=== PATIENT | male | born 1970 | race Caucasian/White ===

== ENCOUNTER → 2017-05-10 | Outpatient (CLI) | payer BC ==
--- NOTE | 2017-05-10 20:43 | CT ---
EXAMINATION TYPE: CT abdomen pelvis w con DATE OF EXAM: 05/10/2017 COMPARISON: NONE HISTORY: Left lower quadrant pain on and off x couple years. CT DLP: 1360.90 mGycm Automated exposure control for dose reduction was used. TECHNIQUE: Helical acquisition of images was performed from the lung bases through the pelvis. CONTRAST: Performed with Oral Contrast and with IV Contrast, patient injected with 100 mL of Omnipaque 300. FINDINGS: Lung bases are clear. There is no pleural effusion. There is mild scarring or subsegmental atelectasi s at the right posterior lung base. Liver shows no focal defect. Gallbladder is contracted. Spleen and pancreas appear normal. There is no adrenal mass. Kidneys show satisfactory contrast opacification. There is no hydronephrosi s. There is no retroperitoneal adenopathy. There is no ascites. There are tiny calcifications in the right kidney. Appendix appears normal. I see no intestinal wall thickening. There are no dilated loops. There is pl ate with screws fixing the right acetabulum. There are small calcifications in the prostate gland. Bl adder is almost empty. I see no bony destructive process. There is narrowing at L5-S1 disc space with spurring. IMPRESSION: MILD ATHEROMATOUS CHANGE IN THE AORTA. 2 AND 1 MM NONOBSTRUCTING CALCIFICATION IN THE RIGHT KIDNEY. NORMAL APPENDIX.
== END | disposition home or self-care (01) ==
LOC: RADCTMAIN 17:48
PROVIDERS: ATTEND Internal Medicine
DX: I70.0 Atherosclerosis of aorta (principal); N28.89 Other specified disorders of kidney and ureter; R10.32 Left lower quadrant pain
CPT/HCPCS: 74177; Q9967

== ENCOUNTER → 2017-06-16 | Outpatient (CLI) | payer BC ==
--- NOTE | 2017-06-16 17:20 | XR ---
EXAMINATION TYPE: XR finger RT DATE OF EXAM: 06/16/2017 COMPARISON: NONE HISTORY: Finger deformity TECHNIQUE: 2 views FINDINGS: There is some spurring at the DIP joint of the ring finger. I see no fracture nor dislocati on. IMPRESSION: Mild spurring. No fracture seen.
== END | disposition home or self-care (01) ==
LOC: RADXRYALE 16:51
PROVIDERS: ATTEND Family Medicine
DX: M77.8 Other enthesopathies, not elsewhere classified (principal)

== ENCOUNTER 2018-07-13 10:12 | Day surgery (SDC) | payer BC ==
[2018-07-11 17:42] VITALS: BMI 31.1
[~2018-07-13 10:12] MED LIST: LACTATED RINGERS 1,000 ML IV SCH; LIDOCAINE 1% 20 ML VIAL (10MG/ML) FOR IV START INTRADERMA PRN
[2018-07-13 10:56] VITALS: RESP 16; TEMP 97.7
[2018-07-13] MEDS ORDERED: LIDOCAINE 1% INJ 10MG/ML (20 ML MDV) ONE (11:54)
[2018-07-13] MEDS ORDERED: MIDAZOLAM 2 MG/2 ML VIAL ONE (11:54)
[2018-07-13] MEDS ORDERED: PROPOFOL 10 MG/ML 20 ML VIAL IV ONE (11:54)
[2018-07-13] MEDS ORDERED: GLYCOPYRROLATE 0.2 MG/ML 2 ML VIAL ONE (11:54)
--- NOTE | 2018-07-13 12:05 | P.PCN ---
Date of Procedure: 07/13/18 Procedure(s) Performed: BRIEF HISTORY: Patient is a heart 7-year-old, pleasant, white male, scheduled for an upper endoscopy as a part of evaluation of intermittent heartburn and globus sensation this area for the last several years duration.. PROCEDURE PERFORMED: Esophagogastroduodenoscopy with biopsy. PREOPERATIVE DIAGNOSIS: GERD/globus pharyngeus. IV sedation per anesthesia. PROCEDURE: After informed consent was obtained, the patient was brought into the endoscopy unit. IV sedation was administered by Anesthesia under continuous monitoring. Initially the Olympus GIF-140 video endoscope was inserted into the mouth. Esophagus intubated without any difficulty. It was gradually advanced into the stomach and duodenum and carefully examined. The bulb and the second part of the duodenum appeared normal. The scope at this time was withdrawn to the stomach, adequately insufflated with air, and upon careful examination, mucosa of the antrum, and mild gastritis and biopsies were done from this area. The body, cardia and the fundus appeared normal. The scope was then withdrawn into the esophagus. The GE junction was located at 43 cm from the incisors. There were no erosions or ulcerations seen. There was a short segment of Oleray's esophagus with a tongue of Oleary's appearing mucosa extending 5 mm proximal to the GE junction and this was biopsied. The rest of the esophagus appeared normal and the patient tolerated the procedure well. IMPRESSION: 1. Antral gastritis. 2. 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 RECOMMENDATIONS: The findings of this examination were discussed with the patient as his family. He was advised to follow with the biopsy results. He can continue with Zantac 150 milligrams twice daily and follow antireflux measures. If the biopsy shows evidence of Oleary's esophagus, he can have a repeat upper endoscopy in 2 years.
[2018-07-13 12:25] VITALS: BP 139/83; PULSE 74
== END 2018-07-13 12:50 | disposition home or self-care (01) ==
LOC: ORWHC2ENDO 10:12
PROVIDERS: ATTEND Internal Medicine Gastroenterology
DX: K29.50 Unspecified chronic gastritis without bleeding (principal); K22.70 Barrett's esophagus without dysplasia; K21.9 Gastro-esophageal reflux disease without esophagitis; Z79.891 Long term (current) use of opiate analgesic; Z79.899 Other long term (current) drug therapy; Z79.1 Long term (current) use of non-steroidal anti-inflammatories (NSAID); Z79.82 Long term (current) use of aspirin; Z88.0 Allergy status to penicillin; Z87.891 Personal history of nicotine dependence
CPT/HCPCS: 88305; 43239; J2250; J2001; J2704

== ENCOUNTER → 2018-12-06 | Outpatient (CLI) | payer BC ==
--- NOTE | 2018-12-07 09:49 | XR ---
EXAMINATION TYPE: XR elbow complete LT DATE OF EXAM: 12/06/2018 CLINICAL HISTORY: pain TECHNIQUE: Frontal, lateral and oblique images of the left elbow are obtained. COMPARISON: None. FINDINGS: There is no acute fracture/dislocation evident of the elbow. No abnormal fat pad signs ar e seen. The overlying soft tissue appears unremarkable. IMPRESSION: There is no acute fracture or dislocation of the elbow. ICD 10 NO FRACTURE, INITIAL EVALUATION
== END | disposition home or self-care (01) ==
LOC: RADXRYALE 16:41
PROVIDERS: ATTEND Family Medicine
DX: M25.522 Pain in left elbow (principal)

== ENCOUNTER → 2020-10-23 | Outpatient (CLI) | payer BC ==
--- NOTE | 2020-10-23 17:55 | XR ---
EXAMINATION TYPE: XR abdomen 2V DATE OF EXAM: 10/23/2020 COMPARISON: 12/09/2012 INDICATION: Left lower quadrant pain TECHNIQUE: Abdomen is examined in the supine and upright views. FINDINGS: There is a normal bowel gas pattern. No free air is present. No suspicious differential air-fluid lev els are present. Old postsurgical changes are at the right pelvis. Psoas margins are normal. No organomegaly is present. IMPRESSION: 1. Unremarkable Abdomen
== END | disposition home or self-care (01) ==
LOC: RADXRYALE 15:42
PROVIDERS: ATTEND Physician Assistant Medical
DX: R10.814 Left lower quadrant abdominal tenderness (principal)
CPT/HCPCS: 74019

== ENCOUNTER → 2020-11-21 | Outpatient (CLI) | payer BC ==
--- NOTE | 2020-11-22 08:23 | CT ---
EXAMINATION TYPE: CT abdomen pelvis w con DATE OF EXAM: 11/21/2020 COMPARISON: 05/10/2017 HISTORY: 50-year-old male Left lower quadrant abdominal pain and tenderness. TECHNIQUE: Contiguous axial scanning of the abdomen and pelvis following administration of 100 ml Iso josé miguel 300 IV contrast. Delayed images through the kidneys and coronal/sagittal reconstructions perform ed. CT DLP: 1345.5 mGycm Automated exposure control for dose reduction was used. FINDINGS: Heart normal size without pericardial effusion. Lung bases clear without pleural effusion. Liver mild ly enlarged at 18.4 cm there are no focal lesions seen. No biliary ductal dilatation. Portal venous s ystem appears patent. Gallbladder, adrenal glands, left kidney, and pancreas appear within normal limits. Punctate nonobstr uctive 2 mm right renal calculus, coronal image 61. Spleen mildly enlarged at 15.1 cm measured on coronal series. No dilated small bowel, free fluid, or free air. No mesenteric or retroperitoneal lymphadenopathy. Normal appendix. Oral contrast progressed to the mid transverse colon. There is mild scattered stool. No pericolonic inflammatory change. Bladder partially distended. Questionable mild mural based thickening along the left posterior bladde r base, axial image 81 and coronal image 58. Unclear if this relates to some streak artifact from the patient's previous acetabular plate and screw fixation on the right. Prostate gland mildly enlarged at 4.9 cm wide with central calcifications. No abnormal fluid collection in the pelvis or pelvic lymp hadenopathy. Bones: Moderate degenerative change of both hips. Some sclerosis within the left iliac fossa remains unchanged from 2017, suggesting probable benign bone island. Degenerative change right SI joint. Adva nced degenerative disc disease L5-S1 and facet arthropathy mid to lower lumbar spine. IMPRESSION: 1. MILD HEPATOSPLENOMEGALY (LIVER 18.4 CM AND SPLEEN 15.1 CM). 2. PUNCTATE 2 MM NONOBSTRUCTIVE RIGHT RENAL CALCULUS. 3. QUESTIONABLE MILD MURAL BASED SOFT TISSUE THICKENING ALONG THE LEFT POSTERIOR BLADDER BASE. UNABLE TO DETERMINE IF THIS CORRESPONDS TO STREAK ARTIFACT FROM THE PATIENT'S RIGHT ACETABULAR FIXATION JOSELYN DWARE OR AN UNDERLYING UROTHELIAL LESION. CORRELATE WITH URINALYSIS AND URINE CYTOLOGY TO ASSESS THE NEED FOR DIRECT VISUALIZATION. 4. MILD PROSTATOMEGALY OF 4.9 CM WIDE.
== END ==
LOC: RADCTMAIN 14:38
PROVIDERS: ATTEND Family Medicine
DX: R16.2 Hepatomegaly with splenomegaly, not elsewhere classified (principal); N20.0 Calculus of kidney; N40.0 Benign prostatic hyperplasia without lower urinary tract symptoms; R10.32 Left lower quadrant pain
CPT/HCPCS: 74177; Q9967

== ENCOUNTER → 2021-01-20 | Outpatient (CLI) | payer BC ==
--- NOTE | 2021-01-21 08:34 | XR ---
EXAMINATION TYPE: XR hand complete RT DATE OF EXAM: 01/20/2021 CLINICAL HISTORY: pain TECHNIQUE: Frontal, lateral and oblique images of the right hand are obtained. COMPARISON: None. FINDINGS: There is no acute fracture/dislocation evident. The joint spaces appear within normal limi ts. The overlying soft tissue appears unremarkable. IMPRESSION: There is no acute fracture or dislocation ICD 10 NO FRACTURE, INITIAL EVALUATION
== END | disposition home or self-care (01) ==
LOC: RADXRYALE 16:31
PROVIDERS: ATTEND Physician Assistant Medical
DX: M79.641 Pain in right hand (principal)

== ENCOUNTER → 2021-10-15 | Outpatient (CLI) | payer BC ==
--- NOTE | 2021-10-16 08:53 | XR ---
EXAMINATION TYPE: XR shoulder complete LT DATE OF EXAM: 10/15/2021 COMPARISON: NONE HISTORY: Pain TECHNIQUE: Shoulder examined in 3 projections FINDINGS: The humeral head articulates with the glenoid. The acromio-clavicular junction is normal. No acute fractures or dislocations are evident. A follow up study can be performed 7-10 days from acute trauma for continued pain. IMPRESSION: 1. No acute osseous abnormality left shoulder.
== END | disposition home or self-care (01) ==
LOC: RADXRYALE 16:19
PROVIDERS: ATTEND Physician Assistant
DX: M25.512 Pain in left shoulder (principal)

== ENCOUNTER → 2021-11-07 | Outpatient (CLI) | payer BC ==
--- NOTE | 2021-11-08 11:15 | CT ---
EXAMINATION TYPE: CT chest wo con DATE OF EXAM: 11/07/2021 COMPARISON: None HISTORY: Shortness of breath TECHNIQUE: CT scan of the chest performed without contrast CT DLP: 515 mGycm Automated exposure control for dose reduction was used. FINDINGS: No focal airspace opacity, pneumothorax or pleural effusion. Azygos fissure noted. Airways are patent , no bronchiectasis seen. Nodules: 3 mm nodule right upper lobe image 40 series 4. 5 to 6 mm right upper lobe nodule image 47 series 4. 5 6 mm nodule left upper lobe image 21 series 4. The heart is normal in size. No pericardial effusion seen. Left coronary artery atherosclerotic calci fications are noted. Intrathoracic aorta is nonaneurysmal in appearance. No mediastinal or hilar adenopathy. No axillary lymphadenopathy. No acute fracture or dislocation seen. Mild degenerative changes are seen in the thoracic spine. Dege nerative changes are noted at the left clavicular sternal junction. Additional sternocostal junction degenerative changes are noted which are not unexpected for the patient's age.The soft tissue are unr emarkable. The thyroid gland is not enlarged. Atherosclerotic calcifications are seen in the infrarenal abdomina l aorta. There is a 2 to 3 mm right renal calculus. The esophagus is nondistended. IMPRESSION: 1. NO ACUTE INTRATHORACIC PROCESS. 2. NONSPECIFIC LUNG NODULES DESCRIBED ABOVE MEASURING UP TO 6 MM, PLEASE REFER TO [facility] FOR WORKUP/FOLLOW-UP RECOMMENDATION-OTHERWISE REPEAT CHEST CT IN 12 MONTHS. 3. RIGHT RENAL CALCULUS MEASURING UP TO 3 MM.
== END | disposition home or self-care (01) ==
LOC: RADCTMAIN 15:33
PROVIDERS: ATTEND Family Medicine
DX: R91.8 Other nonspecific abnormal finding of lung field (principal); N20.0 Calculus of kidney
CPT/HCPCS: 71250

== ENCOUNTER → 2023-02-01 | Outpatient (CLI) | payer BC ==
--- NOTE | 2023-02-02 09:54 | CT ---
EXAMINATION TYPE: CT chest wo con DATE OF EXAM: 02/01/2023 COMPARISON: 11/07/2019 HISTORY: Follow up for Solitary Pulmonary Nodules. CT DLP: 483.7 mGycm. Automated Exposure Control for Dose Reduction was Utilized. TECHNIQUE: CT scan of the thorax is performed without IV contrast. FINDINGS: LUNGS: The lungs are grossly clear, there is no concerning consolidative pneumonia identified. Ther e is no pleural effusion or pneumothorax seen. The tracheobronchial tree is patent. Linear subsegmen bari areas of consolidation most scarring cysts. Additional subsegmental consolidation right lung base suggest atelectasis 1 mm nodule right upper lobe image 33 series 4. Stable. 5 mm right upper lobe nodule image 39 series 4. Stable. 3 mm nodule left upper lobe image 15 series 4. Stable. MEDIASTINUM: Lack of IV contrast is noted to limit evaluation for mediastinal and especially hilar ad enopathy. There are no definitive greater than 1 cm hilar or mediastinal lymph nodes. No cardiomega ly or pericardial effusion is seen. There is coronary artery calcification. Aorta normal caliber with mild sclerotic change OTHER: There multiple less than 5 mm renal calculus. Hypertrophic and degenerative changes spine. IMPRESSION: 1. Stable 5 mm less pulmonary nodules which have a benign appearance. 2. Nonobstructing bilateral renal calculi. 3. Coronary artery calcifications
== END | disposition home or self-care (01) ==
LOC: RADCTMAIN 18:13
PROVIDERS: ATTEND Family Medicine
DX: I25.10 Atherosclerotic heart disease of native coronary artery without angina pectoris (principal); R91.8 Other nonspecific abnormal finding of lung field; N20.0 Calculus of kidney
CPT/HCPCS: 71250

== ENCOUNTER 2023-02-19 14:14 | Emergency (ER) | payer BC ==
[2023-02-19 14:31] VITALS: BP 160/80; PULSE 87; RESP 20; TEMP 98.2
--- NOTE | 2023-02-19 14:54 | ED ---
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 Patient states that last night was bit by an unknown bug on his right forearm. Patient states upon waking today, bite has worsened stating that it is becoming red and swollen and spreading. No recent antibiotic use or recent hospitalizations. Denies history of IVDA. No other complaints - Related Data Home Medications Medication Instructions Recorded Confirmed Aspirin EC [Ecotrin] 325 mg PO DAILY PRN 05/31/18 07/13/18 Pseudoephedrine 12Hr [Sudafed 12Hr] 120 mg PO Q12H PRN 05/31/18 07/13/18 traMADol HCL [Ultram] 50 mg PO DAILY PRN 05/31/18 07/13/18 Ibuprofen [Motrin] 600 mg PO Q6HR PRN 07/11/18 07/13/18 Previous Rx's Medication Instructions Recorded Doxycycline [Vibramycin] 100 mg PO BID #14 capsule 02/19/23 Allergies Allergy/AdvReac Type Severity Reaction Status Date / Time Penicillins Allergy Anaphylaxis Verified 02/19/23 14:30 Review of Systems ROS Statement: Those systems with pertinent positive or pertinent negative responses have been documented in the HPI. ROS Other: All systems not noted in ROS Statement are negative. Past Medical History Past Medical History: No Reported History History of Any Multi-Drug Resistant Organisms: None Reported Past Surgical History: Appendectomy, Hernia Repair, Orthopedic Surgery Additional Past Surgical History / Comment(s): repair of rt Fx of Acetabulum Past Anesthesia/Blood Transfusion Reactions: No Reported Reaction Past Psychological History: No Psychological Hx Reported Smoking Status: Current some day smoker Past Alcohol Use History: Occasional Past Drug Use History: None Reported - Past Family History Mother Family Medical History: No Reported History General Exam Limitations: no limitations General appearance: alert, in no apparent distress Head exam: Present: atraumatic, normocephalic Neck exam: Present: normal inspection Respiratory exam: Present: normal lung sounds bilaterally Cardiovascular Exam: Present: regular rate, normal rhythm Right Upper Arm exam: Present: other (Approximately 8 x 5 cm area on the anterior forearm of warmth and erythema with minimal swelling. Nontender to palpation.) Neurological exam: Present: alert, oriented X3 Psychiatric exam: Present: normal affect, normal mood Skin exam: Present: warm, dry Course Vital Signs 02/19/23 14:28 Temperature 98.2 F Pulse Rate 87 Respiratory 20 Rate Blood Pressure 160/80 O2 Sat by Pulse 98 Oximetry Medical Decision Making - Medical Decision Making Was pt. sent in by a medical professional or institution ([facility] Bassett, TYPECASTING MACHINE OPERATOR, urgent care, hospital, or [facility]...) When possible be specific @ -[No] Did you speak to anyone other than the patient for history (EMS, parent, family, police, friend...)? What history was obtained from this source @ -[No] Did you review nursing and triage notes (agree or disagree)? Why? @ -[I reviewed and agree with nursing and triage notes] Were old charts reviewed (outside hosp., previous admission, EMS record, old EKG, old radiological studies, urgent care reports/EKG's, [facility] records)? Report findings @ -[No old charts were reviewed] Differential Diagnosis (chest pain, altered mental status, abdominal pain women, abdominal pain men, vaginal bleeding, weakness, fever, dyspnea, syncope, headache, dizziness, GI bleed, back pain, seizure, CVA, palpatations, mental health, musculoskeletal)? @ -Atopic dermatitis, erysipelas, poison andres, is not meant to be an all- inclusive list. EKG interpreted by me (3pts min.). @ -[As above] X-rays interpreted by me (1pt min.). @ -[None done] CT interpreted by me (1pt min.). @ -[None done] U/S interpreted by me (1pt. min.). @ -[None done] What testing was considered but not performed or refused? (CT, X-rays, U/S, labs)? Why? @ -[None] What meds were considered but not given or refused? Why? @ -[None] Did you discuss the management of the patient with other professionals (professionals i.e. [facility] Bassett, TYPECASTING MACHINE OPERATOR, lab, RT, psych nurse, psychotherapist social worker, kapok machine operator, teacher, signals officer, sample case porter)? Give summary @ -[No] Was smoking cessation discussed for >3mins.? @ -[No] Was critical care preformed (if so, how long)? @ -[No] Were there social determinants of health that impacted care today? How? (Homelessness, low income, unemployed, alcoholism, drug addiction, transportation, low edu. Level, literacy, decrease access to med. care, usp, rehab)? @ -[No] Was there de-escalation of care discussed even if they declined (Discuss DNR or withdrawal of care, Hospice)? DNR status @ -[No] What co-morbidities impacted this encounter? (DM, HTN, Smoking, COPD, CAD, Cancer, CVA, ARF, Chemo, Hep., AIDS, mental health diagnosis, sleep apnea, morbid obesity)? @ -[None] Was patient admitted / discharged? Hospital course, mention meds given and route, prescriptions, significant lab abnormalities, going to OR and other pertinent info. @ -Patient discharged and prescribed doxycycline 100 mg twice a day for 7 days for outpatient treatment. At this time vital signs stable and afebrile. Undiagnosed new problem with uncertain prognosis? @ -[No] Drug Therapy requiring intensive monitoring for toxicity (Heparin, Nitro, Insulin, Cardizem)? @ -[No] Were any procedures done? @ -[No] Diagnosis/symptom? @ -Cellulitis Acute, or Chronic, or Acute on Chronic? @ -Acute Uncomplicated (without systemic symptoms) or Complicated (systemic symptoms)? @ -[default] Side effects of treatment? @ -[No] Exacerbation, Progression, or Severe Exacerbation? @ -[No] Poses a threat to life or bodily function? How? (Chest pain, USA, CT, pneumonia, PE, COPD, DKA, ARF, appy, cholecystitis, CVA, Diverticulitis, Homicidal, Suicidal, threat to staff... and all critical care pts) @ -[No] Disposition Clinical Impression: Cellulitis Disposition: HOME SELF-CARE Condition: Good Additional Instructions: Please return to the Emergency Department if symptoms worsen or any other concerns. Prescriptions: Doxycycline [Vibramycin] 100 mg PO BID #14 capsule Is patient prescribed a controlled substance at d/c from ED?: No Referrals: Jignesh Barrientos DO [Primary Care Provider] - 1-2 days Time of Disposition: 14:50
== END 2023-02-19 16:11 | disposition home or self-care (01) ==
LOC: EC 14:14
DX: L03.113 Cellulitis of right upper limb (principal); F17.200 Nicotine dependence, unspecified, uncomplicated; Z88.0 Allergy status to penicillin; W57.XXXA Bitten or stung by nonvenomous insect and other nonvenomous arthropods, initial encounter
CPT/HCPCS: 99283

== ENCOUNTER 2024-03-10 21:58 | Emergency (ER) | payer BC ==
[2024-03-10 22:30] VITALS: TEMP 97.7
--- NOTE | 2024-03-10 22:36 | ED ---
Male Urogenital HPI - General Source: patient, RN notes reviewed Mode of arrival: ambulatory Limitations: no limitations <May Finch - Last Filed: 03/10/24 22:35> - General Source: RN notes reviewed, old records reviewed Mode of arrival: ambulatory Limitations: no limitations - History of Present Illness MD Complaint: other (Hematuria) -: days(s) (5) Radiation: none Severity: mild Severity scale (1-10): 2 Improves with: none Worsens with: none Reports: blood in urine <Nicko Santiago - Last Filed: 03/24/24 21:29> - General Chief complaint: Urogenital Stated complaint: Blood in Urine Time Seen by Provider: 03/10/24 22:35 - History of Present Illness Initial comments: Quick note: 53-year-old male presented to the ER with a chief complaint of hematuria. He reports he had a large amount of blood in his urine on 03-06-2024. He states on Wednesday he had a very small amount in his urine P states for the past week he did not have any episodes of hematuria. He states this evening he had another large episode of hematuria. He is not currently on any blood thinners. He does have a history of kidney stones. He is also endorsing left lower quadrant abdominal pain. Denies any fevers or chills. (May Finch) This is a 53-year-old male non-smoker coming in for evaluation regards to blood in the urine going on for about a week he did have a negative outpatient urine test and culture (Nicko Santiago) - Related Data Home Medications Medication Instructions Recorded Confirmed Aspirin EC [Ecotrin] 325 mg PO DAILY PRN 05/31/18 07/13/18 Pseudoephedrine 12Hr [Sudafed 12Hr] 120 mg PO Q12H PRN 05/31/18 07/13/18 traMADol HCL [Ultram] 50 mg PO DAILY PRN 05/31/18 07/13/18 Ibuprofen [Motrin] 600 mg PO Q6HR PRN 07/11/18 07/13/18 Previous Rx's Medication Instructions Recorded Doxycycline [Vibramycin] 100 mg PO BID #14 capsule 02/19/23 Allergies Allergy/AdvReac Type Severity Reaction Status Date / Time Penicillins Allergy Anaphylaxis Verified 03/10/24 22:30 Review of Systems ROS Other: All systems not noted in ROS Statement are negative. <Mya Finch - Last Filed: 03/10/24 22:35> ROS Other: All systems not noted in ROS Statement are negative. <MelindaNicko dobson Grzegorz - Last Filed: 03/24/24 21:29> ROS Statement: Those systems with pertinent positive or pertinent negative responses have been documented in the HPI. Past Medical History Past Medical History: No Reported History Additional Past Medical History / Comment(s): kidney stones History of Any Multi-Drug Resistant Organisms: None Reported Past Surgical History: Appendectomy, Hernia Repair, Orthopedic Surgery Additional Past Surgical History / Comment(s): repair of rt Fx of Acetabulum Past Anesthesia/Blood Transfusion Reactions: No Reported Reaction Past Psychological History: No Psychological Hx Reported Smoking Status: Current some day smoker Past Alcohol Use History: Occasional Past Drug Use History: None Reported - Past Family History Mother Family Medical History: No Reported History <May Finch - Last Filed: 03/10/24 22:35> General Exam Limitations: no limitations <May Finch - Last Filed: 03/10/24 22:35> General appearance: alert, in no apparent distress Head exam: Present: atraumatic, normocephalic, normal inspection Eye exam: Present: normal appearance, PERRL, EOMI. Absent: scleral icterus, conjunctival injection, periorbital swelling ENT exam: Present: normal exam, mucous membranes moist Neck exam: Present: normal inspection. Absent: tenderness, meningismus, lymphadenopathy Respiratory exam: Present: normal lung sounds bilaterally. Absent: respiratory distress, wheezes, rales, rhonchi, stridor Cardiovascular Exam: Present: regular rate, normal rhythm, normal heart sounds. Absent: systolic murmur, diastolic murmur, rubs, gallop, clicks GI/Abdominal exam: Present: soft, normal bowel sounds. Absent: distended, tenderness, guarding, rebound, rigid Extremities exam: Present: normal inspection, full ROM, normal capillary refill. Absent: tenderness, pedal edema, joint swelling, calf tenderness Back exam: Present: normal inspection Neurological exam: Present: alert, oriented X3, CN II-XII intact Psychiatric exam: Present: normal affect, normal mood Skin exam: Present: warm, dry, intact, normal color. Absent: rash <Nicko Santiago - Last Filed: 03/24/24 21:29> - General Exam Comments Initial Comments: Visual Physical Exam Vital signs reviewed General: Well-appearing, nontoxic, no acute distress. Head: Normocephalic, atraumatic Eyes: PERRLA, EOMI ENT: Airway patent Chest: Nonlabored breathing Skin: No visual rash, normal skin tone Neuro: Alert and oriented 3 Musculoskeletal: No gross abnormalities (May Finch) Course <Nicko Santiago - Last Filed: 03/24/24 21:29> Vital Signs 03/10/24 03/11/24 22:26 01:36 Temperature 97.7 F Pulse Rate 92 91 Respiratory 20 18 Rate Blood Pressure 165/87 156/83 O2 Sat by Pulse 96 Oximetry - Reevaluation(s) Reevaluation #1: 03/11/24 01:12 Medical records reviewed (Nicko Santiago) Reevaluation #2: 03/11/24 01:12 Patient is able to urinate here in the ER (Nicko Santiago) Reevaluation #3: Patient informed of results questions answered (Nicko Santiago) Reevaluation #4: Was pt. sent in by a medical professional or institution ([facility] Bassett, THERAPY AIDE, urgent care, hospital, or [facility]...) When possible be specific @ -no Did you speak to anyone other than the patient for history (EMS, parent, family, police, friend...)? What history was obtained from this source @ -no Did you review nursing and triage notes (agree or disagree)? Why? @ -agree Are old charts reviewed (outside hosp., previous admission, EMS record, old EKG, old radiological studies, urgent care reports/EKG's, [facility] records)? Report findings @ -yes Differential Diagnosis (chest pain, altered mental status, abdominal pain women, abdominal pain men, vaginal bleeding, weakness, fever, dyspnea, syncope, headache, dizziness, GI bleed, back pain, seizure, CVA, palpatations, mental health, musculoskeletal)? @ -prior EKG interpreted by me (3pts min.). @ -no X-rays interpreted by me (1pt min.). @ -no CT interpreted by me (1pt min.). @ -yes negative for acute disease U/S interpreted by me (1pt. min.). @ -no What testing was considered but not performed or refused? (CT, X-rays, U/S, labs)? Why? @ -none What meds were considered but not given or refused? Why? @ -none Did you discuss the management of the patient with other professionals (professionals i.e. , PA, THERAPY AIDE, lab, RT, psych nurse, social media community manager, rail signal mechanic, teacher, chief scientific officer, shoe caser)? Give summary @ -no Was smoking cessation discussed for >3mins.? @ -no Was critical care preformed (if so, how long)? @ -no Were there social determinants of health that impacted care today? How? (Homelessness, low income, unemployed, alcoholism, drug addiction, transportation, low edu. Level, literacy, decrease access to med. care, nursing home, rehab)? @ -none Was there de-escalation of care discussed even if they declined (Discuss DNR or withdrawal of care, Hospice)? DNR status @ -no What co-morbidities impacted this encounter? (DM, HTN, Smoking, COPD, CAD, Cancer, CVA, ARF, Chemo, Hep., AIDS, mental health diagnosis, sleep apnea, morbid obesity)? @ -none Was patient admitted / discharged? Hospital course, mention meds given and route, prescriptions, significant lab abnormalities, going to OR and other pertinent info. @ - 53 male to ER for evaluation of hematuria with no acute cause found. Ramesh mosher has negative CT scan and can be discharged home Discharge Undiagnosed new problem with uncertain prognosis? @ -no Drug Therapy requiring intensive monitoring for toxicity (Heparin, Nitro, Insul in, Cardizem)? @ -no Were any procedures done? @ -no Diagnosis/symptom? @ -Hematuria Acute, or Chronic, or Acute on Chronic? @ -Acute Uncomplicated (without systemic symptoms) or Complicated (systemic symptoms)? @ -Complicated Side effects of treatment? @ -no Exacerbation, Progression, or Severe Exacerbation? @ -exacerbation Poses a threat to life or bodily function? How? (Chest pain, USA, [place], pneumonia, PE, COPD, DKA, ARF, appy, cholecystitis, CVA, Diverticulitis, Homicidal, Suicidal, threat to staff... and all critical care pts) @ -no (Nicko Santiago) Reevaluation #5: Differential Abdominal Pain Men: Appendicitis, cholecystitis, diverticulosis, ischemic bowel, pancreatitis, hepatitis, UTI, gastroenteritis, AAA, incarcerated hernia, bowel obstruction, constipation, inflammatory bowel, hepatitis, peptic ulcer disease, splenic infarction, perforated viscus, testicular torsion, this is not meant to be an all-inclusive list (Nicko Santiago) Medical Decision Making <May Finch - Last Filed: 03/10/24 22:35> - Lab Data Result diagrams: 03/11/24 00:07 03/11/24 00:07 - Radiology Data Radiology results: report reviewed (CT abdomen pelvis negative for acute disease), image reviewed <Nicko Santiago - Last Filed: 03/24/24 21:29> - Medical Decision Making I performed the quick note portion of this chart. Electronically signed by May Finch PA-C (May Finch) 53 male to ER for evaluation of hematuria with no acute cause found. Patient has negative CT scan and can be discharged home (Nicko Santiago) - Lab Data Lab Results 03/10/24 03/11/24 03/11/24 Range/Units 22:32 00:07 00:07 WBC 7.6 (3.8-10.6) k/uL RBC 4.88 (4.30-5.90) m/uL Hgb 15.7 (13.0-17.5) gm/dL Hct 46.8 (39.0-53.0) % MCV 95.8 (80.0-100.0) fL MCH 32.2 (25.0-35.0) pg MCHC 33.6 (31.0-37.0) g/dL RDW 13.4 (11.5-15.5) % Plt Count 276 (150-450) k/uL MPV 7.4 Neutrophils % 57 % Lymphocytes % 28 % Monocytes % 8 % Eosinophils % 4 % Basophils % 1 % Neutrophils # 4.4 (1.3-7.7) k/uL Lymphocytes # 2.2 (1.0-4.8) k/uL Monocytes # 0.6 (0-1.0) k/uL Eosinophils # 0.3 (0-0.7) k/uL Basophils # 0.1 (0-0.2) k/uL PT 10.1 (10.0-12.5) sec INR 0.9 (<1.2) APTT 26.5 (22.0-30.0) sec Sodium (137-145) mmol/L Potassium (3.5-5.1) mmol/L Chloride (98-107) mmol/L Carbon Dioxide (22-30) mmol/L Anion Gap mmol/L BUN (9-20) mg/dL Creatinine (0.66-1.25) mg/dL Est GFR (CKD-EPI)AfAm (>60 ml/min/1.73 sqM) Est GFR (CKD-EPI)NonAf (>60 ml/min/1.73 sqM) Glucose (74-99) mg/dL Calcium (8.4-10.2) mg/dL Total Bilirubin (0.2-1.3) mg/dL AST (17-59) U/L ALT (4-49) U/L Alkaline Phosphatase (38-126) U/L Total Protein (6.3-8.2) g/dL Albumin (3.5-5.0) g/dL Amylase (30-110) U/L Lipase (23-300) U/L Urine Color Light Red Urine Appearance Cloudy (Clear) Urine pH 5.5 (5.0-8.0) Ur Specific [place] 1.025 (1.001-1.035) Urine Protein 1+ H (Negative) Urine Glucose (UA) Negative (Negative) Urine Ketones Negative (Negative) Urine Blood Large H (Negative) Urine Nitrite Negative (Negative) Urine Bilirubin Negative (Negative) Urine Urobilinogen <2.0 (<2.0) mg/dL Ur Leukocyte Esterase Trace H (Negative) Urine RBC >182 H (0-5) /hpf Urine WBC 16 H (0-5) /hpf Ur Squamous Epith Cells 1 (0-4) /hpf Urine Mucus Occasional H (None) /hpf 03/11/24 Range/Units 00:07 WBC (3.8-10.6) k/uL RBC (4.30-5.90) m/uL Hgb (13.0-17.5) gm/dL Hct (39.0-53.0) % MCV (80.0-100.0) fL MCH (25.0-35.0) pg MCHC (31.0-37.0) g/dL RDW (11.5-15.5) % Plt Count (150-450) k/uL MPV Neutrophils % % Lymphocytes % % Monocytes % % Eosinophils % % Basophils % % Neutrophils # (1.3-7.7) k/uL Lymphocytes # (1.0-4.8) k/uL Monocytes # (0-1.0) k/uL Eosinophils # (0-0.7) k/uL Basophils # (0-0.2) k/uL PT (10.0-12.5) sec INR (<1.2) APTT (22.0-30.0) sec Sodium 137 (137-145) mmol/L Potassium 4.0 (3.5-5.1) mmol/L Chloride 109 H (98-107) mmol/L Carbon Dioxide 19 L (22-30) mmol/L Anion Gap 9 mmol/L BUN 17 (9-20) mg/dL Creatinine 0.84 (0.66-1.25) mg/dL Est GFR (CKD-EPI)AfAm >90 (>60 ml/min/1.73 sqM) Est GFR (CKD-EPI)NonAf >90 (>60 ml/min/1.73 sqM) Glucose 106 H (74-99) mg/dL Calcium 8.7 (8.4-10.2) mg/dL Total Bilirubin 0.6 (0.2-1.3) mg/dL AST 25 (17-59) U/L ALT 24 (4-49) U/L Alkaline Phosphatase 50 (38-126) U/L Total Protein 7.0 (6.3-8.2) g/dL Albumin 4.4 (3.5-5.0) g/dL Amylase 66 (30-110) U/L Lipase 71 (23-300) U/L Urine Color Urine Appearance (Clear) Urine pH (5.0-8.0) Ur Specific [place] (1.001-1.035) Urine Protein (Negative) Urine Glucose (UA) (Negative) Urine Ketones (Negative) Urine Blood (Negative) Urine Nitrite (Negative) Urine Bilirubin (Negative) Urine Urobilinogen (<2.0) mg/dL Ur Leukocyte Esterase (Negative) Urine RBC (0-5) /hpf Urine WBC (0-5) /hpf Ur Squamous Epith Cells (0-4) /hpf Urine Mucus (None) /hpf Disposition <May Finch - Last Filed: 03/10/24 22:35> Is patient prescribed a controlled substance at d/c from ED?: No Time of Disposition: 01:30 <Nicko Santiago - Last Filed: 03/24/24 21:29> Clinical Impression: Hematuria Disposition: HOME SELF-CARE Condition: Good Instructions (If sedation given, give patient instructions): Hematuria (ED) Referrals: Jignesh Barrientos DO [Primary Care Provider] - 1-2 days Maury Fisher MD [STAFF PHYSICIAN] - 1-2 days
[2024-03-10 22:53] LABS: Appearance,Urine Cloudy (Clear); Bilirubin,Urine Negative (Negative); Blood,Urine Large (Negative); Color,Urine Light Red; Glucose,Urine (UA) Negative (Negative); Ketones,Urine Negative (Negative); Leukocyte Esterase,Urine Trace (Negative); Mucus,Urine Occasional /hpf; Nitrite,Urine Negative (Negative); PH, Urine 5.5 (5.0-8.0); Protein,Urine 1+ (Negative); RBC,Urine >182 /hpf (0-5); Specific Gravity,Urine 1.025 (1.001-1.035); Squamous Epithelial Cell,Urine 1 /hpf (0-4); Urobilinogen,Urine <2.0 mg/dL (<2.0); WBC,Urine 16 /hpf (0-5)
[2024-03-11] MEDS: SODIUM CHLORIDE 0.9% 1,000 ML IV STA (00:06)
[2024-03-11 00:16] LABS: Basophils # (A) 0.1 k/uL (0-0.2); Basophils % (A) 1 %; Eosinophils # (A) 0.3 k/uL (0-0.7); Eosinophils % (A) 4 %; HCT 46.8 % (39.0-53.0); HGB 15.7 gm/dL (13.0-17.5); Lymphocytes # (A) 2.2 k/uL (1.0-4.8); Lymphocytes % (A) 28 %; MCH 32.2 pg (25.0-35.0); MCHC 33.6 g/dL (31.0-37.0); MCV 95.8 fL (80.0-100.0); Mean Platelet Volume 7.4; Monocytes # (A) 0.6 k/uL (0-1.0); Monocytes % (A) 8 %; Neutrophils # (A) 4.4 k/uL (1.3-7.7); Neutrophils % (A) 57 %; Platelet Count 276 k/uL (150-450); RBC 4.88 m/uL (4.30-5.90); RDW 13.4 % (11.5-15.5); WBC 7.6 k/uL (3.8-10.6)
[2024-03-11 00:35] LABS: ALT 24 U/L (4-49); African American GFR (CKD) >90 (>60 ml/min/1.73 sqM); Albumin 4.4 g/dL (3.5-5.0); Amylase 66 U/L (30-110); Anion Gap 9 mmol/L; Blood Urea Nitrogen 17 mg/dL (9-20); Calcium 8.7 mg/dL (8.4-10.2); Carbon Dioxide 19 mmol/L (22-30); Chloride 109 mmol/L (98-107); Glucose 106 mg/dL (74-99); Lipase 71 U/L (23-300); Non-African American GFR(CKD) >90 (>60 ml/min/1.73 sqM); Sodium 137 mmol/L (137-145); Total Bilirubin 0.6 mg/dL (0.2-1.3)
[2024-03-11 00:41] LABS: INR 0.9 (<1.2); Partial Thromboplastin Time 26.5 sec (22.0-30.0); Prothrombin Time 10.1 sec (10.0-12.5)
[2024-03-11 00:43] LABS: AST 25 U/L (17-59); Alkaline Phosphatase 50 U/L (38-126)
--- NOTE | 2024-03-11 01:33 | CT ---
EXAM: CT Abdomen and Pelvis With Intravenous Contrast CLINICAL HISTORY: ITS.REASON CT Reason: abdominal pain TECHNIQUE: Axial computed tomography images of the abdomen and pelvis with intravenous contrast. CTDI is 24.3 mGy and DLP is 1301.7 mGy-cm. This CT exam was performed using one or more of the following dose reduction techniques: automated exposure control, adjustment of the mA and/or kV according to patient size, and/or use of iterative reconstruction technique. COMPARISON: CT abdomen pelvis 11/21/2020. FINDINGS: Lung bases: Unremarkable. No mass. No consolidation. ABDOMEN: Liver: Hepatic steatosis. Gallbladder and bile ducts: Contracted gallbladder. No calcified stones. No ductal dilation. Pancreas: Unremarkable. No mass. No ductal dilation. Spleen: Unremarkable. No splenomegaly. Adrenals: Unremarkable. No mass. Kidneys and ureters: Nonobstructing 3 mm right lower pole renal stone. No hydronephrosis or delayed nephrogram. Stomach and bowel: Diverticulosis, without acute diverticulitis. No small bowel obstruction. No free intraperitoneal air. PELVIS: Appendix: No findings to suggest acute appendicitis. Bladder: Unremarkable. Normal urinary bladder. Reproductive: Unremarkable as visualized. ABDOMEN and PELVIS: Intraperitoneal space: Unremarkable. No free air. No significant fluid collection. Bones/joints: Degenerative changes of the spine. Posterior right acetabulum. No acute fracture. No dislocation. Soft tissues: Unremarkable. Vasculature: Atherosclerotic changes of the aorta. No abdominal aortic aneurysm. Lymph nodes: Unremarkable. No enlarged lymph nodes. IMPRESSION: 1. No hydronephrosis or delayed nephrogram. 2. Hepatic steatosis. 3. Nonobstructing 3 mm right lower pole renal stone. 4. Diverticulosis, without acute diverticulitis. No small bowel obstruction. No free intraperitoneal air.
[2024-03-11 01:37] VITALS: BP 156/83; PULSE 91; RESP 18
== END 2024-03-11 01:43 | disposition home or self-care (01) ==
LOC: EC 21:58
DX: K57.30 Diverticulosis of large intestine without perforation or abscess without bleeding (principal); K76.0 Fatty (change of) liver, not elsewhere classified; N20.0 Calculus of kidney; F17.200 Nicotine dependence, unspecified, uncomplicated; Z88.0 Allergy status to penicillin
CPT/HCPCS: 99284; 96360; 36415; 80053; 82150; 83690; 85025; 85610; 85730; 81001; 74177; Q9967

== ENCOUNTER 2024-04-09 22:20 | Emergency (ER) | payer BC ==
[2024-04-09 22:41] VITALS: TEMP 98.1
[2024-04-09] MEDS ORDERED: NYSTAT-TRIAMCIN 100,000-0.1 UNIT/GM-% OINT 30 GM TUBE TOPICAL STA (23:18)
--- NOTE | 2024-04-09 23:20 | ED ---
Recheck HPI - General Chief Complaint: Recheck/Abnormal Lab/Rx Stated Complaint: Post-Op Complications, Rash/Infection Time Seen by Provider: 04/09/24 23:07 Source: patient, RN notes reviewed, old records reviewed Mode of arrival: ambulatory Limitations: no limitations - History of Present Illness Initial Comments: This is a 53-year-old male to the ER for evaluation of multiple recent issues lately with surgery surgery for bladder cancer, patient is having significant itchy swollen rash of the groin and scrotum Initial Visit For: cellulitis Returns Today for: persistent/worsening pain related to initial visit Symptoms Since Prior Visit: worsening pain Context: planned re-check Associated Symptoms: none Treatments Prior to Arrival: other (0) - Related Data Home Medications Medication Instructions Recorded Confirmed Aspirin EC [Ecotrin] 325 mg PO DAILY PRN 05/31/18 07/13/18 Pseudoephedrine 12Hr [Sudafed 12Hr] 120 mg PO Q12H PRN 05/31/18 07/13/18 traMADol HCL [Ultram] 50 mg PO DAILY PRN 05/31/18 07/13/18 Ibuprofen [Motrin] 600 mg PO Q6HR PRN 07/11/18 07/13/18 Previous Rx's Medication Instructions Recorded Doxycycline [Vibramycin] 100 mg PO BID #14 capsule 02/19/23 Allergies Allergy/AdvReac Type Severity Reaction Status Date / Time Penicillins Allergy Anaphylaxis Verified 04/09/24 22:41 Review of Systems ROS Statement: Those systems with pertinent positive or pertinent negative responses have been documented in the HPI. ROS Other: All systems not noted in ROS Statement are negative. Past Medical History Past Medical History: No Reported History Additional Past Medical History / Comment(s): kidney stones History of Any Multi-Drug Resistant Organisms: None Reported Past Surgical History: Appendectomy, Hernia Repair, Orthopedic Surgery Additional Past Surgical History / Comment(s): repair of rt Fx of Acetabulum, Turp 03/2024 Past Anesthesia/Blood Transfusion Reactions: No Reported Reaction Past Psychological History: No Psychological Hx Reported Smoking Status: Current some day smoker Past Alcohol Use History: Occasional Past Drug Use History: None Reported - Past Family History Mother Family Medical History: No Reported History General Exam Limitations: no limitations General appearance: alert, in no apparent distress Head exam: Present: atraumatic, normocephalic, normal inspection Eye exam: Present: normal appearance, PERRL, EOMI. Absent: scleral icterus, conjunctival injection, periorbital swelling ENT exam: Present: normal exam, mucous membranes moist Neck exam: Present: normal inspection. Absent: tenderness, meningismus, lymphadenopathy Respiratory exam: Present: normal lung sounds bilaterally. Absent: respiratory distress, wheezes, rales, rhonchi, stridor Cardiovascular Exam: Present: regular rate, normal rhythm, normal heart sounds. Absent: systolic murmur, diastolic murmur, rubs, gallop, clicks GI/Abdominal exam: Present: soft, normal bowel sounds. Absent: distended, tenderness, guarding, rebound, rigid Extremities exam: Present: normal inspection, full ROM, normal capillary refill. Absent: tenderness, pedal edema, joint swelling, calf tenderness Back exam: Present: normal inspection Neurological exam: Present: alert, oriented X3, CN II-XII intact Psychiatric exam: Present: normal affect, normal mood Skin exam: Present: warm, dry, intact, normal color. Absent: rash Course Vital Signs 04/09/24 04/10/24 22:33 00:22 Temperature 98.1 F Pulse Rate 86 90 Respiratory 16 18 Rate Blood Pressure 151/102 150/80 O2 Sat by Pulse 99 98 Oximetry - Reevaluation(s) Reevaluation #1: Medical records reviewed Reevaluation #2: Patient has no acute symptoms no findings Reevaluation #3: Patient informed of results questions answered Reevaluation #4: Was pt. sent in by a medical professional or institution (, PA, JUDO TEACHER, urgent care, hospital, or correction...) When possible be specific @ -no Did you speak to anyone other than the patient for history (EMS, parent, family, police, friend...)? What history was obtained from this source @ -no Did you review nursing and triage notes (agree or disagree)? Why? @ -agree Are old charts reviewed (outside hosp., previous admission, EMS record, old EKG, old radiological studies, urgent care reports/EKG's, correction records)? Report findings @ -yes Differential Diagnosis (chest pain, altered mental status, abdominal pain women, abdominal pain men, vaginal bleeding, weakness, fever, dyspnea, syncope, headache, dizziness, GI bleed, back pain, seizure, CVA, palpatations, mental health, musculoskeletal)? @ -prior EKG interpreted by me (3pts min.). @ -no X-rays interpreted by me (1pt min.). @ -no CT interpreted by me (1pt min.). @ -no U/S interpreted by me (1pt. min.). @ -no What testing was considered but not performed or refused? (CT, X-rays, U/S, labs)? Why? @ -none What meds were considered but not given or refused? Why? @ -none Did you discuss the management of the patient with other professionals (professionals i.e. , PA, JUDO TEACHER, lab, RT, psych nurse, psychiatric social worker, burner shaft, teacher, public relations officer, caser up)? Give summary @ -no Was smoking cessation discussed for >3mins.? @ -no Was critical care preformed (if so, how long)? @ -no Were there social determinants of health that impacted care today? How? (Homelessness, low income, unemployed, alcoholism, drug addiction, transportation, low edu. Level, literacy, decrease access to med. care, group home, rehab)? @ -none Was there de-escalation of care discussed even if they declined (Discuss DNR or withdrawal of care, Hospice)? DNR status @ -no What co-morbidities impacted this encounter? (DM, HTN, Smoking, COPD, CAD, Cancer, CVA, ARF, Chemo, Hep., AIDS, mental health diagnosis, sleep apnea, morbid obesity)? @ -none Was patient admitted / discharged? Hospital course, mention meds given and route, prescriptions, significant lab abnormalities, going to OR and other pertinent info. @ - 53 male with cellulitis rash of groin tinea of the groin patient was placed on treatment and can be discharged home Discharge Undiagnosed new problem with uncertain prognosis? @ -no Drug Therapy requiring intensive monitoring for toxicity (Heparin, Nitro, Ins ulin, Cardizem)? @ -no Were any procedures done? @ -no Diagnosis/symptom? @ -Tinea rash Thomas H groin Acute, or Chronic, or Acute on Chronic? @ -Acute Uncomplicated (without systemic symptoms) or Complicated (systemic symptoms)? @ -Complicated Side effects of treatment? @ -no Exacerbation, Progression, or Severe Exacerbation? @ -exacerbation Poses a threat to life or bodily function? How? (Chest pain, [place], [place], pneumonia, PE, COPD, DKA, ARF, appy, cholecystitis, CVA, Diverticulitis, Homicidal, Suicidal, threat to staff... and all critical care pts) @ -no Medical Decision Making - Medical Decision Making 53 male with cellulitis rash of groin tinea of the groin patient was placed on treatment and can be discharged home Disposition Clinical Impression: Tari rash of groin Disposition: HOME SELF-CARE Condition: Good Instructions (If sedation given, give patient instructions): Jock Itch (ED), Skin Yeast Infection (ED) Is patient prescribed a controlled substance at d/c from ED?: No Referrals: Jignesh Barrientos DO [Primary Care Provider] - 1-2 days Time of Disposition: 23:50
[2024-04-10 00:23] VITALS: BP 150/80; PULSE 90; RESP 18
[2024-04-10] MEDS: NYSTATIN 100,000 UNIT/GM POWD 15 GM TOPICAL ONE (00:24)
[2024-04-10] MEDS: NYSTATIN 100,000 UNIT/GM OINT 30 GM TUBE TOPICAL SCH (00:25)
[2024-04-10] MEDS: TRIAMCINOLONE ACET 0.1% OINTMENT 15 GM TUBE TOPICAL SCH (00:25)
== END 2024-04-10 00:23 | disposition home or self-care (01) ==
LOC: EC 22:20
DX: Z88.0 Allergy status to penicillin (principal); B37.9 Candidiasis, unspecified; F17.290 Nicotine dependence, other tobacco product, uncomplicated
CPT/HCPCS: 99282

== ENCOUNTER → 2024-06-13 | Outpatient (CLI) | payer BC ==
--- NOTE | 2024-06-13 23:32 | CT ---
EXAMINATION TYPE: CT abdomen wo/w con DATE OF EXAM: 06/13/2024 COMPARISON: 03/11/2024 INDICATION: left sided abdominal pain DLP: 1925 mGycm, Automated exposure control for dose reduction was used. CONTRAST: 100 mL of Isovue 300. Study performed with Oral Contrast TECHNIQUE: Axial images were obtained from above the diaphragm to the pelvis in the axial plane at 5 mm thick sections. Reconstructed images are reviewed on the computer in the coronal plane. FINDINGS: Limited CT sections are obtained the lung bases. The lung bases are clear. CT ABDOMEN: Liver: Normal Spleen: Normal Pancreas: Normal Adrenal glands: The adrenal glands are normal. Gallbladder: Normal Kidneys: No masses are evident. No hydronephrosis is present. No cysts are present. Punctate nonob structing renal stones are noted on the right. The largest is in the mid right kidney. 0.4 cm. Series 3 image 41. No hydroureters. Aorta: Vascular calcification is within the aorta. Inferior vena cava: Normal. Bowel: Loops of bowel within the abdomen and pelvis are normal. There are loops of bowel which ar e incompletely distended or lack oral contrast limiting their evaluation. Appendix: Normal as partially visualized.. Study is performed as a abdomen only study. Left lower quadrant suggests sigmoid colon diverticulitis [id number]. Likewise, the appendix is large [id number]. IMPRESSION: 1. Nonobstructing right-sided renal stones [facility] Ranjeet Rashid, , 06/13/2024 11:29 PM
== END | disposition home or self-care (01) ==
LOC: RADCTMAIN 16:23
PROVIDERS: ATTEND Family Medicine
DX: N20.0 Calculus of kidney (principal); Z85.51 Personal history of malignant neoplasm of bladder
CPT/HCPCS: 74170

== ENCOUNTER → 2025-04-18 | Outpatient (CLI) | payer BC ==
--- NOTE | 2025-04-18 16:18 | US ---
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 known stone: 0.9cm, multiple echogenic foci seen Left Kidney: ?echogenic foci: 0.8cm Bladder: ?outpouching from posterior bladder wall, ?possible diverticulum vs other: 1.8cm Bilateral Jets seen: Left only, Rt not well seen IMPRESSION: Nonobstructing nephrolithiasis. [facility], , 04/18/2025 4:15 PM
== END | disposition home or self-care (01) ==
LOC: RADUSWWP 15:49
PROVIDERS: ATTEND Urology
DX: C67.2 Malignant neoplasm of lateral wall of bladder (principal); C67.9 Malignant neoplasm of bladder, unspecified; N20.0 Calculus of kidney
CPT/HCPCS: 76770